=== PATIENT | female | born 1985 | race Asian ===

== ENCOUNTER 2020-04-26 11:30 | Inpatient (IN) | payer OTHER ==
[~2020-04-26] VITALS: Ht 160 cm; Wt 70.4 kg
[~2020-04-26 11:30] MED LIST: IBUP-1222 PO; ONDA4TAB7 PO; OXYC1TAB14 PO; PREN1TAB52 PO; SENN-177 PO
[2020-04-26] MEDS ORDERED: NEWBORN KIT ONE (11:50)
[2020-04-26] MEDS ORDERED: FENTANYL PF 100 MCG/2ML ONE (11:50)
[2020-04-26] MEDS: FENTANYL PF 100 MCG/2ML IVPush PRN ×2 (11:50→15:35)
[2020-04-26] MEDS ORDERED: OXYTOCIN 30U/ 0.9% NaCL 500ML 500 ML ONE (11:50)
[2020-04-26] MEDS ORDERED: LACTATED RINGERS 1,000 ML IV SCH (12:00)
[2020-04-26] MEDS ORDERED: TERBUTALINE 1 MG/ML, 1ML IVPush PRN (12:00)
[2020-04-26] MEDS ORDERED: CALCIUM CARBONATE 500 MG TAB.CHEW PO PRN (12:00)
[2020-04-26] MEDS ORDERED: D5%-LACTATED RINGERS 1,000 ML IV SCH (12:00)
[2020-04-26] MEDS ORDERED: OXYTOCIN 30U/ 0.9% NaCL 500ML 500 ML IV ONE (12:00)
[2020-04-26] MEDS ORDERED: ONDANSETRON 2MG/ML, 2ML IVPush PRN (12:00)
[2020-04-26] MEDS ORDERED: TERBUTALINE 1 MG/ML, 1ML SQ PRN (12:00)
[2020-04-26] MEDS ORDERED: FENTANYL PF 100 MCG/2ML IV PRN (12:00)
[2020-04-26] MEDS ORDERED: LIDOCAINE 1%, 20ML ONE (12:02)
[2020-04-26] MEDS ORDERED: MISOPROSTOL 200 MCG TABLET ONE (12:02)
[2020-04-26 12:14] VITALS: BP 95/56
[2020-04-26 12:17] LABS: BASOPHILS % (AUTO) 0 % (0-1); EOSINOPHILS % (AUTO) 1 % (1-7); LYMPHOCYTES % (AUTO) 18 % (22-44); MEAN CORPUSCULAR HEMOGLOBIN 28.5 pg (27.0-34.8); MEAN CORPUSCULAR HGB CONC 33.3 g/dL (32.4-35.8); MONOCYTES % (AUTO) 6 % (2-9); NEUTROPHILS % (AUTO) 75 % (42-75); PLATELET COUNT 191 x10^3/uL (130-400); RED BLOOD COUNT 4.34 x10^6/uL (3.82-5.3); RED CELL DISTRIBUTION WIDTH 14.3 % (9.6-15.2)
[2020-04-26 12:19] LABS: MD NO
[2020-04-26] MEDS ORDERED: METHYLERGONOVINE 0.2 MG/ML IM PRN (12:30)
[2020-04-26] MEDS ORDERED: ACETAMINOPHEN 325 MG TABLET PO PRN (12:30)
[2020-04-26] MEDS ORDERED: CARBOPROST TROMETHAMINE 250 MCG/ML, 1ML IM PRN (12:30)
[2020-04-26] MEDS ORDERED: OXYcodone/APAP 5/325MG TABLET PO PRN ×3 (12:30→19:00)
[2020-04-26] MEDS ORDERED: OXYTOCIN 30U/ 0.9% NaCL 500ML 500 ML IV SCH (12:30)
[2020-04-26] MEDS ORDERED: SIMETHICONE 80 MG CHEW TAB PO PRN (12:30)
[2020-04-26] MEDS ORDERED: MISOPROSTOL 200 MCG TABLET PR PRN (12:30)
[2020-04-26 15:10] VITALS: BP 130/77
[2020-04-26] MEDS: IBUPROFEN 600 MG TABLET PO PRN (15:34)
[2020-04-26 20:00] VITALS: BP 109/71
[2020-04-26 21:55] LABS: BASOPHILS % (AUTO) 1 % (0-1); EOSINOPHILS % (AUTO) 1 % (1-7); LYMPHOCYTES % (AUTO) 11 % (22-44); MEAN CORPUSCULAR HEMOGLOBIN 28.3 pg (27.0-34.8); MEAN CORPUSCULAR HGB CONC 33.3 g/dL (32.4-35.8); MEAN PLATELET VOLUME 8.6 fL (7.4-10.4); MONOCYTES % (AUTO) 6 % (2-9); NEUTROPHILS % (AUTO) 81 % (42-75); PLATELET COUNT 184 x10^3/uL (130-400); RED BLOOD COUNT 4.16 x10^6/uL (3.82-5.3); RED CELL DISTRIBUTION WIDTH 14.5 % (9.6-15.2)
[2020-04-26 21:56] LABS: MD NO
[2020-04-27] MEDS: IBUPROFEN 600 MG TABLET PO PRN (00:15)
[2020-04-27] MEDS: DOCUSATE 100 MG CAPSULE PO PRN ×2 (00:15→10:56)
[2020-04-27 00:30] VITALS: BP 119/74
[2020-04-27 05:00] VITALS: BP 103/63
[2020-04-27 07:18] VITALS: BP 110/67
[2020-04-27] MEDS ORDERED: PRENATAL VIT/IRON/FA 1 EACH TABLET PO SCH (09:00)
[2020-04-27] MEDS ORDERED: IBUP-1222 PO (09:56)
== END 2020-04-27 16:38 | disposition home or self-care (01) | DRG 807 ==
LOC: LDOP 11:30 → LDIP 11:46 → 2NW 14:59
PROVIDERS: ADMIT Obstetrics & Gynecology; ATTEND Obstetrics & Gynecology
PROC: 10E0XZZ Delivery of Products of Conception, External Approach (ICD-10-PCS; principal; 2020-04-26)
PROC: 0KQM0ZZ Repair Perineum Muscle, Open Approach (ICD-10-PCS; 2020-04-26)
DX: O69.81X0 Labor and delivery complicated by cord around neck, without compression, not applicable or unspecified (principal); Z37.0 Single live birth; Z3A.39 39 weeks gestation of pregnancy; Z87.59 Personal history of other complications of pregnancy, childbirth and the puerperium; O70.1 Second degree perineal laceration during delivery; Z20.822 Contact with and (suspected) exposure to COVID-19
CPT/HCPCS: 36415; 85025; 86592; 86850; 86900; 87635; G0378; J3010; J2590; J7120